=== PATIENT | female | born 1965 | race Hispanic/Latino ===

== ENCOUNTER → 2023-05-24 | Day surgery (SDC) | payer OTHER ==
[~2023-05-24] MED LIST: ACTONEL35 MG PO; ALBUTEROL0.63 MG/3 NEB; BREO ELLIPTA 11 EACH INH; CALCIUM CITRAT250 MG PO; FLONASE ALLERG9.9 ML INH; LACTATED RINGER'S 1,000 ML ONE; LIDOCAINE HCL 2% LOCAL INJ 5 ML SDV VIAL INJ ONE; MELOXICAM7.5 MG PO; PROPOFOL IV EMULSION 10 MG/ML 20 ML VIAL ONE; SINGULAIR10 MG PO; VESICARE5 MG PO; VITAMIN B12 PO; VITAMIN D3 PO; WOMENS MULTIVITAMIN PO
[2023-05-24 08:58] VITALS: TEMP 97.5
[2023-05-24 09:25] VITALS: BP 124/84; PULSE 69; RESP 18; O2SAT 98
== END | disposition home or self-care (01) ==
LOC: OR 06:20
PROVIDERS: ATTEND Internal Medicine Gastroenterology
DX: R13.10 Dysphagia, unspecified (principal); K29.50 Unspecified chronic gastritis without bleeding; B96.81 Helicobacter pylori [H. pylori] as the cause of diseases classified elsewhere; K31.A11 Gastric intestinal metaplasia without dysplasia, involving the antrum; J47.9 Bronchiectasis, uncomplicated; M85.80 Other specified disorders of bone density and structure, unspecified site; Z01.810 Encounter for preprocedural cardiovascular examination; Z79.899 Other long term (current) drug therapy; Z68.25 Body mass index [BMI] 25.0-25.9, adult
CPT/HCPCS: 43233; 43239; 88305; 88342; 93005; J2001; J2704; J7121